=== PATIENT | male | born 1975 | race Caucasian/White ===

== ENCOUNTER → 2018-07-12 | Outpatient (REF) ==
[~2018-07-12] MED LIST: NAPR-243 PO; VIT1CAPS6 PO; VITA-187 PO
--- NOTE | 2018-07-12 09:25 | Diagnostic Imaging Report ---
INDICATION: Hit forearm and wrist at time of fall. Pain with movement. TECHNIQUE: 2 views of the right forearm. CORRELATION STUDY: None FINDINGS: The radius and ulna have an unremarkable appearance. The visualized portions of the elbow and wrist are unremarkable. Soft tissues are unremarkable. IMPRESSION: 1. Negative for acute bony abnormality of the right forearm. Dictated by: Dictated on workstation # [id number]
--- NOTE | 2018-07-12 09:36 | Diagnostic Imaging Report ---
INDICATION: Injury to right wrist AP, oblique, and lateral views of the right wrist are obtained. No fracture or acute bony abnormality is seen. Joint spaces are unremarkable. IMPRESSION: Negative right wrist. Dictated by: Dictated on workstation # [id number]
== END | disposition home or self-care (01) ==
LOC: RAD 08:56
PROVIDERS: ATTEND Nurse Practitioner Family
CPT/HCPCS: 73090; 73110